=== PATIENT | male | born 2005 | race Caucasian/White ===

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

== ENCOUNTER 2023-12-15 07:28 | Day surgery (SDC) | payer OTHER ==
[2023-12-09 11:35] VITALS: BP 112/64
[~2023-12-15] VITALS: Ht 175.3 cm; Wt 70.0 kg
--- NOTE | ~2023-12-15 | OR ---
[facility] [address], [place] [address] Draft DATE OF OPERATION: 12/15/2023 SURGEON: Chacho Parks MD PREOPERATIVE DIAGNOSES: 1. Right conductive hearing loss. 2. Septal deformity. 3. Bilateral inferior turbinate hypertrophy. POSTOPERATIVE DIAGNOSES: 1. Right conductive hearing loss. 2. Septal deformity. 3. Bilateral inferior turbinate hypertrophy. PROCEDURES: 1. Right myringotomy and ventilation tube insertion. 2. Septoplasty. 3. Cautery bilateral inferior turbinates. ANESTHESIA: General, LMA; Darrell LAUGHLIN PREOP HISTORY: Mr. Pierre is a 17-year-old young man with chronic hearing loss in the right ear. Audio in TMs showed conductive hearing loss with a flat pattern of the tympanogram. He also has nasal obstruction due to a septal deformity and inferior turbinate hypertrophy, unresponsive to appropriate medications. He is taken to the operating room for the above-mentioned procedures. OPERATIVE PROCEDURE AND FINDINGS: After informed consent, the patient was taken to the operating room, placed in supine position, where general LMA anesthesia was induced. The patient and procedure were verified. The patient received preoperative intranasal oxymetazoline and intravenous Ancef. The right ear was examined with the microscope. Anterior inferior radial myringotomy was made. No middle ear effusion. Moura tube placed in myringotomy site. Ofloxacin ophthalmic drops applied to the ear canal, cotton ball to the meatus. The patient was repositioned. Headlight speculum exam of the nasal cavity showed good decongestion of the inferior turbinates, septal deformity with a ridge on the right inferiorly, which was obstructive and posteriorly a spur on the left. A 1% lidocaine PATIENT NAME: MORRIS PIERRE OPERATIVE REPORT DATE OF : [birth year] REPORT #: [id number] PHYSICIAN: CHACHO PARKS MD PCP: HERMES CLEANING PA-C REPORT IS CONFIDENTIAL AND NOT TO BE RELEASED WITHOUT AUTHORIZATION [facility] [address], [place] [address] Draft with epi was injected at the septal mucosa. The deviated septal bone and cartilage on both sides was then excised with the Amanda. Airway was improved in this manner. The inferior turbinates were then cauterized with a long handle needle point cautery. Multiple transmucosal passes starting on the left inferior turbinate medial, multiple transmucosal passes on the medial and inferior surface of the inferior turbinate extending anteriorly all the way back posteriorly. Excellent shrinkage in the turbinate and improvement in the airway was obtained. Minimal bleeding. Same procedure on the right inferior turbinate. Packing was then placed, one piece of Merocel each side trimmed, coated with Neosporin, tied anteriorly over a pad. The pharynx was suctioned clear of blood secretions. The patient was then awakened, extubated, transported to the recovery room in good condition. No complications. BLOOD LOSS: Minimal. SPECIMEN: No specimens. DRAINS: No drains. PACKING: One piece of Merocel in each nostril. Chacho Parks MD GC/MODL /[id number] Copies: ~ PATIENT NAME: MORRIS PIERRE OPERATIVE REPORT DATE OF : 03 REPORT #: [id number] PHYSICIAN: CHACHO PARKS MD PCP: HERMES CLEANING PA-C REPORT IS CONFIDENTIAL AND NOT TO BE RELEASED WITHOUT AUTHORIZATION
[~2023-12-15 07:28] MED LIST: CEFAZOLIN SODIUM 2 GM/20 ML SYR IV SCH; IBLOOD GLUCOSE TEST STRIP 1 EA TEST VI PRN; LACTATED RINGER'S 1,000 ML IV SCH; LIDOCAINE HCL 1% 5 ML SDV INJ ONE
[2023-12-15 07:39] VITALS: BP 123/61
[2023-12-15] MEDS ORDERED: FAMOTIDINE 20 MG/ 2 ML VIAL ONE (08:28)
[2023-12-15] MEDS ORDERED: LACTATED RINGER'S 1,000 ML IV ONE (08:28)
[2023-12-15] MEDS ORDERED: MIDAZOLAM HCL 2 MG/2 ML VIAL ONE (08:28)
[2023-12-15] MEDS ORDERED: KETOROLAC TROMETHAMINE 30 MG/ML VIAL ONE (08:28)
[2023-12-15] MEDS ORDERED: METOCLOPRAMIDE HCL 10 MG/2 ML SDV ONE (08:28)
[2023-12-15] MEDS ORDERED: fentaNYL citrate 100 MCG/2 ML VIAL ONE (08:28)
[2023-12-15] MEDS ORDERED: propofoL 200 MG/20 ML VIAL ONE (08:28)
[2023-12-15] MEDS ORDERED: DEXAMETHASONE SOD PHOS 4 MG/ML VIAL ONE (08:28)
[2023-12-15] MEDS ORDERED: ondansetron HCL 4 MG/2 ML VIAL ONE (08:28)
[2023-12-15] MEDS ORDERED: dexmedeTOMIDine HCl 200 MCG/2 ML VIAL ONE (08:30)
[2023-12-15] MEDS ORDERED: OXYMETAZOLINE HCL 30 ML BTL NAS SCH (08:30)
[2023-12-15] MEDS ORDERED: CIPROFLOXACIN 0.3% 5 ML HOME.PACK ONE (10:09)
[2023-12-15] MEDS ORDERED: CIPROFLOXACIN 0.3% 5 ML HOME.PACK OTIC ONE (10:30)
[2023-12-15] MEDS ORDERED: MEPERIDINE HCL 25 MG/1 ML VIAL IV PRN (11:00)
[2023-12-15] MEDS ORDERED: fentaNYL citrate 50 MCG/ML SDV IV PRN (11:00)
[2023-12-15] MEDS ORDERED: NALOXONE HCL 0.4 MG SYR IV PRN (11:00)
[2023-12-15] MEDS ORDERED: ondansetron HCL 4 MG/2 ML VIAL IV PRN (11:00)
[2023-12-15] MEDS ORDERED: IBLOOD GLUCOSE TEST STRIP 1 EA TEST VI PRN (11:00)
[2023-12-15] MEDS ORDERED: PROCHLORPERAZINE EDISYLATE 10 MG/2 ML VIAL IV PRN (11:00)
[2023-12-15] MEDS ORDERED: droPERidol 5 MG/2 ML VIAL IV PRN (11:00)
[2023-12-15] MEDS ORDERED: METOCLOPRAMIDE HCL 10 MG/2 ML SDV IV PRN (11:00)
--- NOTE | 2023-12-15 11:25 | NUR ---
12/15/23 1125 Alysha Stockton 1042 PT ARRIVED IN PACU NON RESPONSIVE TO NOXIOUS STIMULI WITH OPA IN PLACE. CHIN LIFT HELD BY RN TO KEEP AIRWAY OPEN. 1050 REPOSITIONED PT'S HEAD TO KEEP AIRWAY OPEN WITH OPA IN PLACE. 1100 PT REACTIVE TO NOXIOUS STIMULI WITH OPA IN PLACE, THEN FALLS BACK TO SLEEP. 1110 PT REACTIVE. OPA AND OXYGEN REMOVED. 1112 SNORING. REU. 1123 AWAKENS TO VERBAL AND TACTILE STIMULATION, THEN FALLS BACK TO SLEEP SNORING.
[2023-12-15] MEDS ORDERED: HYDROCODONE/ACETA 5/325 TAB PO PRN (11:45)
--- NOTE | 2023-12-15 11:45 | NUR ---
PT ARRIVES TO DS UNIT FROM PACU VIA STRETCHER. PT IS DROWSY, BUT RESPONSIVE TO VERBAL STIMULI AT THIS TIME. NO SIGNS OF BLEEDING OR DRAINAGE AT THIS TIME FROM RT EAR OR NOSTRILS. PACKING REMAINS IN PLACE. REPORT RECEIVED FROM PETRA QUINTERO W/OPAL AND FRIEND AT BEDSIDE. PT REPORTS NO PAIN AT THIS TIME AND RESTING W/EYES CLOSED, RESPIRATIONS EVEN AND UNLABORED & PT ON RA W/O2 >90% W/SLIGHT AUDIBLE SNORE. ICE WATER PROVIDED AND AT BEDSIDE. CALL LIGHT WITHIN REACH, OPAL AND FRIEND STATE NO FURTHER NEEDS OR QUESTIONS AT THIS TIME.
[2023-12-15 11:48] VITALS: BP 113/54
--- NOTE | 2023-12-15 12:10 | NUR ---
IN PT ROOM D/T PT SLIGHTLY MORE AWAKE. ICE WATER PROVIDED, PT TOLERATING SMALL SIPS WITHOUT DIFFICULTY. APPLESAUCE AND CRACKERS PROVIDED. CALL LIGHT WITHIN REACH, PT STATES NO FURTHER NEEDS AT THIS TIME.
[2023-12-15 12:50] VITALS: BP 117/67
--- NOTE | 2023-12-15 12:50 | NUR ---
IN PT ROOM FOR VS AND ASSESSMENT. NO ACUTE CHANGES FROM PREVIOUS ASSESSMENT. PT REMAINS DROWSY AND CONTINUES TO FALL BACK ASLEEP. PT RESPIRATIONS EVEN AND UNLABORED, NO SIGNS OF DISTRESS. PT ON RA W/O2 SATS >90%. FIANCE AND FRIEND REMAIN AT BEDSIDE. PT CONSUMED 100% OF CRACKERS AND APPLESAUCE W/NO REPORT OF NAUSEA. CALL LIGHT WITHIN REACH, NO FURTHER NEEDS AT THIS TIME.
--- NOTE | 2023-12-15 13:25 | NUR ---
ANSWERED PT CALL LIGHT D/T PT REQUESTING TO USE RESTROOM. PT SITS AT BEDSIDE AND STATES NO DIZZINESS OR NAUSEA AT THIS TIME. THIS RN STANDBY ASSIST TO RESTROOM FOR PT URINE VOID 750 ML INTO URINAL. PT BACK IN ROOM AND GETTING DRESSED W/FIANCE ASSISTANCE AT THIS TIME. CALL LIGHT WITHIN REACH.
[2023-12-15 13:40] VITALS: BP 112/56
--- NOTE | 2023-12-15 13:45 | NUR ---
THIS RN IN ROOM FOR DISCHARGE EDUCATION. PT, PT FIANCE, AND PT FRIEND PRESENT FOR DISCHARGE EDUCATION. ALL QUESTIONS ANSWERED AND PT, PT FIANCE, AND PT FRIEND STATE NO FURTHER QUESTIONS OR NEEDS AT THIS TIME, VERBAL UNDERSTANDING RECEIVED. PT OFF OF UNIT VIA WC TO PASSENGER SIDE OF VEHICLE. ALL BELONGINGS IN PT POSSESSION AT THIS TIME. GAUZE/PAPER TAPE PROVIDED. DRIP PAD PLACED FOR DEMONSTRATION, PT STATES VERBAL UNDERSTANDING.
--- NOTE | 2023-12-15 15:55 | NUR ---
PT OPAL CALLED D/T PT STATING HIS THROAT IS IN EXCRUCIATING PAIN AND WONDERING WHEN HE CAN HAVE PAIN MEDICATION. LET PT OPAL KNOW THAT PT CAN HAVE PAIN MEDICINE AT ANYTIME. ALSO PROVIDED PT OPAL W/[place] OFFICE CHARLY PHONE # IF PAIN DOES NOT IMPROVE FROM PAIN MEDICINE. EDUCATED PT OPAL ABOUT ORAL AIRWAY, IRRITATION FROM AFRIN PREOP, AND DRYNESS FROM MOUTH BREATHING THAT ARE ALL CONTRIBUTING FACTORS TO THROAT IRRITATION. OPAL STATES VERBAL UNDERSTANDING AT THIS TIME. PT STATES HE IS HAVING NO DIFFICULTY SWALLOWING, INCREASE THROAT SWELLING, OR DIFFICULTY BREATHING AT THIS TIME. 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 PER PT OPAL, NO FURTHER QUESTIONS OR NEEDS.
== END 2023-12-15 13:45 | disposition home or self-care (01) ==
LOC: OPS 07:28 → DS 07:28 → OPS 09:30 → DS 10:15 → OPS 10:15
PROVIDERS: ATTEND Otolaryngology
PROC: 099500Z Drainage of Right Middle Ear with Drainage Device, Open Approach (ICD-10-PCS; principal; 2023-12-15 10:00)
PROC: 09BM0ZZ Excision of Nasal Septum, Open Approach (ICD-10-PCS; 2023-12-15 10:00)
PROC: 09BL0ZZ Excision of Nasal Turbinate, Open Approach (ICD-10-PCS; 2023-12-15 10:00)
DX: H90.11 Conductive hearing loss, unilateral, right ear, with unrestricted hearing on the contralateral side (principal); H69.83 Other specified disorders of Eustachian tube, bilateral; J34.2 Deviated nasal septum; J34.3 Hypertrophy of nasal turbinates
CPT/HCPCS: J0690; J1100; J1885; J2250; J2405; J2704; J2765; J3010; J7121